=== PATIENT | male | born 1930 | race Caucasian/White ===

== ENCOUNTER 2017-09-04 14:45 | Emergency (ER) | payer MEDICARE, OTHER ==
--- NOTE | 2017-09-04 15:23 | EDM.PDOC ---
ED HPI GENERAL MEDICAL PROBLEM - General Chief Complaint: ENT Problem Stated Complaint: NOSE BLEED Time Seen by Provider: 09/04/17 15:00 Source of Information: Reports: Patient, Old Records History Limitations: Reports: No Limitations - History of Present Illness INITIAL COMMENTS - FREE TEXT/NARRATIVE: Arian comes into [facility] ED by EMS with a spontaneous L epistaxis for the past 2 hrs. He is on Coumadin for Chronic AF. There have not been prior episodes. His labs were drawn this am by visiting nurse, but sent out of town for results. He is reportedly med compliant. - Related Data Allergies Allergy/AdvReac Type Severity Reaction Status Date / Time adhesive Allergy Rash Verified 09/04/17 15:26 latex Allergy Rash Verified 09/04/17 15:26 Home Meds: Home Meds Finasteride [Proscar] 5 mg PO BEDTIME 08/13/14 [History] Metoprolol Succinate [Toprol XL] 25 mg PO DAILY 08/13/14 [History] Warfarin [Coumadin] 2.5 mg PO SUMOWETHSA 08/13/14 [History] Warfarin [Coumadin] 5 mg PO TUFR 08/13/14 [History] Aspirin [Halfprin] 81 mg PO DAILY #0 tab.ec 09/17/14 [Rx] Acetaminophen [Pain Relief] 650 mg PO Q4H PRN 04/03/16 [History] Docusate Sodium/Sennosides [Senokot-S] 1 each PO BID 04/03/16 [History] Isosorbide Mononitrate [Imdur] 45 mg PO DAILY 04/03/16 [History] Lovastatin 20 mg PO BEDTIME 04/03/16 [History] Nitroglycerin [Nitrostat] 0.4 mg SL Q5M PRN 04/03/16 [History] Furosemide [Lasix] 40 mg PO DAILY 04/04/16 [History] glipiZIDE [Glucotrol] 10 mg PO BID 06/16/16 [History] metFORMIN HCl [Metformin HCl] 500 mg PO BID 06/16/16 [History] Acetaminophen [Tylenol Extra Strength] 1,000 mg PO BEDTIME 06/17/16 [History] Codeine/guaiFENesin [Robitussin AC] 10 ml PO Q6H PRN #180 ml 06/19/16 [Rx] Sulfamethoxazole/Trimethoprim [IJD: Sulfamethoxazole/Trimethoprim DS] 1 tab PO BID 7 Days tablet 06/19/16 [Rx] Past Medical History HEENT History: Reports: Cataract Cardiovascular History: Reports: Afib, Blood Clots/VTE/DVT, Hypertension Gastrointestinal History: Reports: Chronic Constipation Genitourinary History: Reports: Urinary Incontinence Musculoskeletal History: Reports: Arthritis Neurological History: Reports: None Endocrine/Metabolic History: Reports: Diabetes, Type II Hematologic History: Reports: Anticoagulation Therapy, Bleeding Disorder Dermatologic History: Reports: Other (See Below) Other Dermatologic History: had his left toe nails removed a week and a half ago [facility] - Infectious Disease History Infectious Disease History: Reports: MRSA - Past Surgical History HEENT Surgical History: Reports: Cataract Surgery, Eye Surgery, Retinal Cardiovascular Surgical History: Reports: Carotid Stents, Valve Replacement Male Surgical History: Reports: Other (See Below) Musculoskeletal Surgical History: Reports: Knee Replacement, Shoulder Surgery Social & Family History - Family History Family Medical History: Noncontributory - Tobacco Use Smoking Status *Q: Never Smoker Second Hand Smoke Exposure: No - Caffeine Use Caffeine Use: Reports: Coffee - Alcohol Use Days Per Week of Alcohol Use: 0 - Recreational Drug Use Recreational Drug Use: No - Living Situation & Occupation Living situation: Reports: Occupation: Retired ED ROS ENT - Review of Systems Review Of Systems: ROS reveals no pertinent complaints other than HPI. ED EXAM, ENT - Physical Exam Exam: See Below Exam Limited By: No Limitations General Appearance: Alert, WD/WN, Anxious, Mild Distress Eye Exam: Bilateral Eye: EOMI, Normal Inspection, PERRL Ears: Normal External Exam, Normal TMs Nose: Active Bleeding (L nares, with clots), Dried Blood (R nares) Mouth/Throat: Normal Gums, Normal Lips, Normal Teeth, Bleeding (posterior pharynx visible clots) Head: Normocephalic Neck: Normal Inspection, Supple, Non-Tender Respiratory/Chest: Lungs Clear, Normal Breath Sounds Cardiovascular: Irregularly Irregular (Male) Exam: Deferred Rectal (Males) Exam: Deferred Extremities: Other (L AK amputee) Neurological: Alert, Oriented, CN II-XII Intact, No Motor/Sensory Deficits Psychiatric: Normal Affect, Normal Mood Skin: Warm, Dry, Ecchymosis Lymphatic: No Adenopathy ED ENT PROCEDURES - Epistaxis Procedure Indication: Epistaxis, Uncontrolled Recent anticoagulants/antiplatlets: Yes Uncontrolled HTN: No Recent septal/nasal surgery: No Site of bleeding: Left Nare Clearing of clots: Patient Blew Nose, Other Ice pack to area: No Anterior Packing: Inflatable Nasal Tampon (RocketRhino) Complications: No Course - Vital Signs Text/Narrative:: Following assessment at the [facility] ED, blood was cleared from the L nares, and a RocketRhino was insert and gradually inflated to control bleeding which was successful. Next the R nares was cleared of clots, no active bleeding. Next the pharynx was irrigated with warm water, and no active bleeding was detected. His PT 30/INR 2.91 was therapeutic. He was discharged home in stable condition. Last Recorded V/S: Last Vital Signs Temp 36.4 C 09/04/17 14:45 Pulse 94 09/04/17 14:45 Resp 16 09/04/17 14:45 BP 109/91 H 09/04/17 14:45 Pulse Ox 95 09/04/17 14:45 - Orders/Labs/Meds Labs: Laboratory Tests 09/04/17 Range/Units 15:25 PT 30.0 H (8.7-11.1) INR 2.91 H (0.89-1.13) Departure - Departure Time of Disposition: 16:09 Disposition: Home, Self-Care 01 Condition: Good Clinical Impression: Anterior epistaxis - Discharge Information Referrals: Justin Gerardo MD [Primary Care Provider] - Forms: ED Department Discharge - Problem List & Annotations (1) Anterior epistaxis SNOMED Code(s): 139141316 Code(s): R04.0 - EPISTAXIS Status: Acute Current Visit: Yes Annotation/ Comment:: Home, keep RocketRhino in place, taken Tylenol for pain if needed. - Problem List Review Problem List Initiated/Reviewed/Updated: Yes - Assessment/Plan Plan: Return to ED with any relapse of epstaxis. I suggested removal of RocketRhino in 2-3 days, and he come back to the ED for this purpose.
[2017-09-04 16:50] VITALS: BP 125/88
== END 2017-09-04 17:00 | disposition home or self-care (01) ==
LOC: FB.ED 14:45
DX: R04.0 Epistaxis (principal); E11.9 Type 2 diabetes mellitus without complications; Z91.040 Latex allergy status; Z79.01 Long term (current) use of anticoagulants; Z79.82 Long term (current) use of aspirin; Z79.899 Other long term (current) drug therapy; Z79.84 Long term (current) use of oral hypoglycemic drugs
CPT/HCPCS: 30901; 30903; 36415; 85610; 99282; 99283